=== PATIENT | female | born 2000 | race Caucasian/White ===

== ENCOUNTER → 2019-06-13 | Emergency (ER) | payer OTHER ==
[~2019-06-13] VITALS: Ht 165.1 cm; Wt 52.2 kg
== END | disposition home or self-care (01) ==
LOC: ER 18:22
DX: B34.9 Viral infection, unspecified (principal)

== ENCOUNTER 2021-02-15 17:43 | Emergency (ER) | payer OTHER ==
[~2021-02-15] VITALS: Ht 165.1 cm; Wt 55.8 kg
[2021-02-15] MEDS ORDERED: INTESTINEX680 M1 PO (20:17)
[2021-02-15] MEDS ORDERED: AMOX1TAB5 PO (20:17)
[2021-02-15] MEDS ORDERED: NAPROXEN375 MG PO (20:17)
[2021-02-15] MEDS ORDERED: SILVADENE20 GM TOP (20:17)
== END 2021-02-15 20:22 | disposition home or self-care (01) ==
LOC: ER 17:43
DX: T23.231A Burn of second degree of multiple right fingers (nail), not including thumb, initial encounter (principal); X19.XXXA Contact with other heat and hot substances, initial encounter; Y93.89 Activity, other specified; Y92.89 Other specified places as the place of occurrence of the external cause; Y99.8 Other external cause status

== ENCOUNTER 2023-07-13 17:57 | Emergency (ER) | payer OTHER ==
[~2023-07-13] VITALS: Ht 165.1 cm; Wt 49.9 kg
[~2023-07-13 17:57] MED LIST: AMOX1TAB5 PO; INTESTINEX680 M1 PO; NAPROXEN375 MG PO; SILVADENE20 GM TOP
[2023-07-13] MEDS ORDERED: NORFLEX100MG PO (22:53)
[2023-07-13] MEDS ORDERED: NAPROXEN500 MG PO (22:53)
== END 2023-07-13 23:09 | disposition home or self-care (01) ==
LOC: ER 17:57
DX: M54.2 Cervicalgia (principal); R51.9 Headache, unspecified; V43.52XA Car driver injured in collision with other type car in traffic accident, initial encounter; Y93.89 Activity, other specified; Y92.413 State road as the place of occurrence of the external cause